=== PATIENT | female | born 1995 | race Caucasian/White ===

== ENCOUNTER 2017-03-31 15:05 | Observation (INO) | payer MEDICAID ==
[2017-12-14] MEDS ORDERED: PREN-96 PO (16:31)
[2017-12-14] MEDS ORDERED: FERR27TA2 PO (16:32)
== END 2017-12-14 17:40 | disposition home or self-care (01) | DRG 781 ==
LOC: LDRP 15:05 → UNDOADMOB 15:05 → LDRP 12-14 15:05 → UNDODISOB 12-14 17:40
PROVIDERS: ADMIT Obstetrics & Gynecology; ATTEND Obstetrics & Gynecology
DX: O36.5930 Maternal care for other known or suspected poor fetal growth, third trimester, not applicable or unspecified (principal); O26.893 Other specified pregnancy related conditions, third trimester; N89.8 Other specified noninflammatory disorders of vagina; O62.9 Abnormality of forces of labor, unspecified; O48.0 Post-term pregnancy; Z3A.41 41 weeks gestation of pregnancy
CPT/HCPCS: 59025; 76818; 81002; G0378

== ENCOUNTER 2017-12-17 15:13 | Observation (INO) | payer MEDICAID ==
[~2017-12-17 15:13] MED LIST: FERR27TA2 PO; PREN-96 PO
== END 2017-12-17 17:30 | disposition home or self-care (01) | DRG 563 ==
LOC: LDRP 15:13
PROVIDERS: ADMIT Obstetrics & Gynecology; ATTEND Obstetrics & Gynecology
DX: O60.03 Preterm labor without delivery, third trimester (principal); O48.0 Post-term pregnancy; Z3A.41 41 weeks gestation of pregnancy
CPT/HCPCS: 59025; 76805; 76818; 81002; G0378

== ENCOUNTER 2017-12-24 14:48 | Observation (INO) | payer MEDICAID | END 2017-12-24 17:00 | disposition home or self-care (01) | DRG 566 | LOC: LDRP 14:48 → UNDODISOB 17:00 | PROVIDERS: ADMIT Specialist; ATTEND Specialist | DX: O36.5930 Maternal care for other known or suspected poor fetal growth, third trimester, not applicable or unspecified (principal); O26.893 Other specified pregnancy related conditions, third trimester; R10.2 Pelvic and perineal pain; Z3A.38 38 weeks gestation of pregnancy | CPT/HCPCS: 59025; 76818; 81002; G0378 ==

== ENCOUNTER 2017-12-31 14:49 | Observation (INO) | payer MEDICAID | END 2017-12-31 16:15 | disposition home or self-care (01) | DRG 955 | LOC: LDRP 14:49 | PROVIDERS: ADMIT Obstetrics & Gynecology; ATTEND Obstetrics & Gynecology | DX: O36.5990 Maternal care for other known or suspected poor fetal growth, unspecified trimester, not applicable or unspecified (principal); Z3A.00 Weeks of gestation of pregnancy not specified | CPT/HCPCS: 59025; 76818; 81002; G0378 ==

== ENCOUNTER 2018-01-06 12:45 | Observation (INO) | payer MEDICAID | END 2018-01-06 14:35 | disposition home or self-care (01) | DRG 566 | LOC: LDRP 12:45 | PROVIDERS: ADMIT Obstetrics & Gynecology; ATTEND Obstetrics & Gynecology | DX: O36.8130 Decreased fetal movements, third trimester, not applicable or unspecified (principal); O26.893 Other specified pregnancy related conditions, third trimester; N89.8 Other specified noninflammatory disorders of vagina; R10.9 Unspecified abdominal pain; Z3A.40 40 weeks gestation of pregnancy | CPT/HCPCS: 59025; 76818; 81002; G0378 ==

== ENCOUNTER 2018-01-07 00:28 | Inpatient (IN) | payer MEDICAID ==
[~2018-01-07] VITALS: Ht 157.5 cm; Wt 61.2 kg
[2018-01-07] MEDS ORDERED: LACTATED RINGER'S 1,000 ML IV SCH (01:13)
[2018-01-07] MEDS ORDERED: BUTORPHANOL TARTRATE 2 MG/1 ML VIAL IV PRN (01:15)
[2018-01-07] MEDS ORDERED: LACT. RINGERS/OXYTOCIN 20UNITS 1,000 ML IV SCH (01:18)
[2018-01-07] MEDS ORDERED: LIDOCAINE 2% (LOCAL ANESTH.) PF 5ml SDV ID ONE (01:30)
[2018-01-07] MEDS ORDERED: METHYLERGONOVINE MALEATE 0.2 MG/ML AMP IM PRN (01:30)
[2018-01-07] MEDS ORDERED: PHISODERM TOP SOLN 240ML BTL TOP PRN (01:30)
[2018-01-07] MEDS ORDERED: LIDOCAINE 1% (LOCAL ANESTH.) PF 5ml SDV IJ ONE (01:30)
[2018-01-07] MEDS ORDERED: DERMOPLAST 60ML BOTTLE TOP PRN (01:30)
[2018-01-07] MEDS ORDERED: WITCH HAZEL-GLYCERIN PAD TOP PRN (01:30)
[2018-01-07] MEDS ORDERED: LACT. RINGERS/OXYTOCIN 20UNITS 500 ML IV ONE (02:53)
[2018-01-07] MEDS ORDERED: ACETAMINOPHEN 325 MG TAB PO PRN (03:00)
[2018-01-07] MEDS: IBUPROFEN 600 MG TAB PO PRN ×2 (03:03→12:55)
[2018-01-07 03:13] LABS: Basophils # (auto) 0.1 uL; Basophils % (auto) 0.4 % (0.0-2.0); Eosinophils # (auto) 0 uL; Hematocrit 41.8 % (36.0-46.0); Hemoglobin 14.5 g/dL (12.2-16.2); Lymphocytes # (auto) 0.8 uL; Lymphocytes % (auto) 4.9 % (10.0-50.0); Mean Corpuscular Hemoglobin 33.7 pg (28.0-32.0); Mean Corpuscular Hgb Conc. 34.7 g/dL (32.0-36.0); Mean Corpuscular Volume 97.1 fL (80.0-100.0); Monocytes # (auto) 0.4 uL; Monocytes % (auto) 2.5 % (0.0-12.0); Neutrophils # (auto) 15.7 uL; Neutrophils % (auto) 92.2 % (37.0-80.0); Platelet Count (auto) 177 10^3/uL (140-450)
[2018-01-07 03:18] LABS: INR 0.87 (0.9-1.15); Partial Thromboplastin Time 28.7 sec (23.78-33.04); Prothrombin Time 9.4 sec (9.27-12.13)
[2018-01-07 03:43] LABS: Albumin 2.8 g/dL (3.4-5.0); BUN/Creatinine Ratio 13.2; Bilirubin, Total 0.4 mg/dL (0.2-1.0); Calcium 8.6 mg/dL (8.5-10.1); Potassium 3.7 mmol/L (3.5-5.1); Total Protein 6.8 g/dL (6.4-8.2)
[2018-01-07 08:00] VITALS: BP 116/62
[2018-01-07 11:10] VITALS: BP 108/62
[2018-01-07 15:00] VITALS: BP 107/64
[2018-01-07 19:00] VITALS: BP 130/68
[2018-01-07 20:03] VITALS: BP 130/68
[2018-01-07 23:00] VITALS: BP 106/58
[2018-01-08 03:30] VITALS: BP 105/74
[2018-01-08 05:06] LABS: RPR Non Reactive (Non Reactive)
[2018-01-08] MEDS: IBUPROFEN 600 MG TAB PO PRN (06:44)
[2018-01-08 07:21] VITALS: BP 104/55
[2018-01-08 11:25] VITALS: BP 103/56
== END 2018-01-08 13:30 | disposition home or self-care (01) | DRG 560 ==
LOC: OBSVTOIN 00:28 → LDRP 00:28
PROVIDERS: ADMIT Obstetrics & Gynecology; ATTEND Obstetrics & Gynecology
PROC: 10E0XZZ Delivery of Products of Conception, External Approach (ICD-10-PCS; principal; 2018-01-07)
DX: O62.3 Precipitate labor (principal); Z37.0 Single live birth; Z3A.40 40 weeks gestation of pregnancy
CPT/HCPCS: 36415; 59025; 59409; 80053; 85025; 85610; 85730; 86592; 86850; 86900; 86901; 96365; 96366; J2590